=== PATIENT | female | born 1935 | race Caucasian/White ===

== ENCOUNTER 2021-12-08 10:22 | Inpatient (IN) | payer MEDICARE, OTHER ==
[~2021-12-08] VITALS: Ht 152.4 cm; Wt 68.0 kg
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
[2021-12-08] MEDS ORDERED: RIVA1.5C13 PO (10:42)
[2021-12-08] MEDS ORDERED: LORA0.5T48 PO (10:42)
[2021-12-08] MEDS ORDERED: BUME2TAB7 PO (10:42)
[2021-12-08] MEDS ORDERED: METH5TAB6 PO (10:42)
[2021-12-08] MEDS ORDERED: CHOL500050 PO (10:42)
[2021-12-08] MEDS ORDERED: ASCO500C18 PO (10:42)
[2021-12-08] MEDS ORDERED: ACET-2154 PO (10:42)
[2021-12-08] MEDS ORDERED: DAPA5TAB PO (10:42)
[2021-12-08] MEDS ORDERED: ESCI10TA PO (10:42)
[2021-12-08] MEDS ORDERED: ALIS150T PO (10:42)
[2021-12-08] MEDS ORDERED: BISA10SU61 RC (10:42)
[2021-12-08] MEDS ORDERED: RISP0.5T5 PO (10:42)
[2021-12-08] MEDS ORDERED: MAGN400O6 PO (10:42)
[2021-12-08] MEDS ORDERED: NA P133E RC (10:42)
--- NOTE | 2021-12-08 11:12 | NUR ---
Attempted to obtain a urine sample, pt unable to give sample in cup. Upon returning pt to bed, pt became paranoid and aguementative, would not return to the bed, but did get her to sit bedside in a chair.
[2021-12-08 11:16] LABS: MEAN CORPUSCULAR VOLUME 96.3 fL (75.5-95.3); PLATELET COUNT (AUTO) 271 K/uL (179-408)
[2021-12-08 11:18] LABS: CARBON DIOXIDE 32 mmol/L (21-32); CHLORIDE 107 mmol/L (98-107); CREATININE 1.1 mg/dL (0.6-1.3); GLUCOSE 136 mg/dL (74-106); POTASSIUM 3.9 mmol/L (3.5-5.1); UREA NITROGEN, BLOOD 25 mg/dL (7-18)
[2021-12-08 11:23] LABS: ALANINE AMINOTRANSFERASE 37 U/L (14-59); ALKALINE PHOSPHATASE 123 U/L (50-136); ASPARTATE AMINOTRANSFERASE 31 U/L (15-37); BILIRUBIN,DIRECT 0.1 mg/dL (0.0-0.2); BILIRUBIN,TOTAL 0.4 mg/dL (0.2-1.0)
[2021-12-08 11:26] LABS: ETHANOL < 3 MG/DL (0-0)
[2021-12-08 11:35] LABS: ACETAMINOPHEN < 2.0 ug/mL (10-30)
--- NOTE | 2021-12-08 11:35 | NUR ---
Pt tried wandering out of her room again, this time was not re directable. Pt became combative, goldie menon called. Pt was taken back to her bed, rails up, and calmed down.
--- NOTE | 2021-12-08 12:35 | NUR ---
Pt repeatedly got out of bed and tried leaving, was redirected to bed. Pt tried forcefully to leave, security called. Pt placed back in bed. ordered restraints. Soft restraints placed on pt's wrists.
--- NOTE | 2021-12-08 13:25 | NUR ---
Pt slipped out of soft restraints and tried eloping again, became combative when being taken back to bed. Psyche spa concierge, Power is now in ER to examine. Will hold off restraints for now.
--- NOTE | 2021-12-08 13:45 | NUR ---
gave report to ELVIA Rodriguez
[2021-12-08 14:00] VITALS: BP 113/56
--- NOTE | 2021-12-08 14:00 | NUR ---
PT ARRIVED TO UNIT ON GURNEY FROM ER ACCOMPANIED BY ER NURSE. PT IS CALM AND COOPERATIVE, BUT QUITE CONFUSED AND DISORIENTED. WANDERING AROUND UNIT AIMLESSLY. REQUIRES FREQUENT REDIRECTION. NO COMBATIVE BEHAVIOR NOTED AT THIS TIME. V/S STABLE. DENIES PAIN OR DISCOMFORT. ORIENTED TO UNIT AND RULES. PATIENTS RIGHTS HANDBOOK GIVEN TO PT.
[2021-12-08] MEDS ORDERED: LORAZEPAM 0.5 MG TABLET PO PRN (14:30)
[2021-12-08] MEDS ORDERED: MAGNESIUM HYDROXIDE 30 ML LIQUID UDC PO PRN ×2 (14:30→15:15)
[2021-12-08] MEDS ORDERED: TEMAZEPAM 7.5 MG CAPSULE PO PRN (14:30)
[2021-12-08] MEDS ORDERED: ACETAMINOPHEN 325 MG TABLET PO PRN (14:30)
[2021-12-08] MEDS ORDERED: MAG HYDROX/AL HYDROX/SIMETH 30 ML LIQUID UDC PO PRN (14:30)
[2021-12-08] MEDS ORDERED: ACETAMINOPHEN 325 MG TABLET-SA PATIENTS-PAIN ONLY PO PRN (15:15)
[2021-12-08] MEDS ORDERED: BISACODYL 10 MG SUPP.RECT RC PRN (15:15)
[2021-12-08] MEDS ORDERED: ALISKIREN HEMIFUMARATE 150 MG TABLET PO SCH (17:00)
[2021-12-08] MEDS ORDERED: RIVASTIGMINE TARTRATE 1.5 MG CAPSULE PO SCH (17:00)
--- NOTE | 2021-12-08 17:25 | NUR ---
PT NOTED AMBULATING UNIT HALLWAY, DIFFICULT TO REDIRECT AT TIMES. PT WILL GO TO NURSES STATION AND OPEN DOORS AND REFUSES TO LEAVE WITHOUT EXTENSIVE REDIRECTION. PT CAN GET COMBATIVE AT TIMES. WOODEN BARREL MECHANIC AND OTHER UNIT NURSE WAS STANDING NEXT TO HER IN HALLWAY AT THIS TIME REDIRECTING PT, WHEN ALL OF A SUDDEN PT FALLS BACK TO FLOOR HITTING OCCIPITAL PORTION OF HEAD. WITNESSED BY RN, VOCATIONAL COUNSELOR, AND INSPECTOR AND CLERK. NURSES ATTEMPT TO GRAB PT TO PREVENT PT FROM FALLING SINCE NURSES WERE RIGHT NEXT TO PT, BUT PT SLIPS OUT OF HANDS AND FALLS BACK. PT APPEARS TO LOSE CONSCIOUSNESS AND BP TAKEN AT 66/40. RAPID RESPONSE CALLED WITH ORDER TO TAKE TO ER. PT'S BRENDA CALLED AND NOTIFIED.
[2021-12-08 18:26] LABS: MEAN CORPUSCULAR HEMOGLOBIN 32.6 uug (24.7-32.8); MEAN CORPUSCULAR VOLUME 95.6 fL (75.5-95.3); PLATELET COUNT (AUTO) 249 K/uL (179-408)
--- NOTE | 2021-12-08 18:39 | NUR ---
PT TO BE DISCHARGED TO EMERGENCY ROOM FOR FURTHER TREATMENT AND EVALUATION. PT IS TO CONTINUE ON [address] SONG.
[2021-12-08 18:42] LABS: ALANINE AMINOTRANSFERASE 37 U/L (14-59); ALKALINE PHOSPHATASE 120 U/L (50-136); ASPARTATE AMINOTRANSFERASE 32 U/L (15-37); BILIRUBIN,TOTAL 0.5 mg/dL (0.2-1.0); CARBON DIOXIDE 29 mmol/L (21-32); CHLORIDE 104 mmol/L (98-107); CREATININE 1.6 mg/dL (0.6-1.3); GLUCOSE 181 mg/dL (74-106); MAGNESIUM 2.3 mg/dL (1.8-2.4); POTASSIUM 3.7 mmol/L (3.5-5.1); TOTAL PROTEIN, SERUM 6.6 g/dL (6.4-8.2); UREA NITROGEN, BLOOD 27 mg/dL (7-18)
[2021-12-09] MEDS ORDERED: Medication Not On Formulary EA (Ascorbic Acid (Vitamin C) 500 MG) PO SCH (06:00)
[2021-12-09] MEDS ORDERED: [UNRECOGNIZED DRUG - OTHER] PO SCH (09:00)
[2021-12-09] MEDS ORDERED: ASCORBIC ACID 500 MG TABLET PO SCH (09:00)
[2021-12-09] MEDS ORDERED: CHOLECALCIFEROL 1,000 UNIT TABLET PO SCH (09:00)
[2021-12-09] MEDS ORDERED: BUMETANIDE 1 MG TABLET PO SCH (09:00)
[2021-12-09] MEDS ORDERED: ALISKIREN 150 MG PO SCH (09:00)
[2021-12-09] MEDS ORDERED: [UNRECOGNIZED DRUG - OTHER] PO SCH (09:00)
[2021-12-09] MEDS ORDERED: Medication Not On Formulary EA (Cholecalciferol (Vitamin D3) (Vitamin D3) 5,000 UNITS) PO SCH (09:00)
[2021-12-09] MEDS ORDERED: Medication Not On Formulary EA (Dapagliflozin Propanediol (Farxiga) 5 MG) PO SCH (09:00)
[2021-12-09] MEDS ORDERED: Medication Not On Formulary EA (Bumetanide (Bumex) 2 MG) PO SCH (09:00)
[2021-12-09] MEDS ORDERED: DAPAGLIFLOZIN 5 MG PO SCH (09:00)
[2021-12-09] MEDS ORDERED: METHIMAZOLE 5 MG TABLET PO SCH (09:00)
== END 2021-12-08 17:20 | disposition short-term general hospital (02) | DRG 885 ==
LOC: ER 10:22 → GPS 13:48
PROVIDERS: ADMIT Psychiatry & Neurology Psychiatry; ATTEND Registered Nurse
DX: F29 Unspecified psychosis not due to a substance or known physiological condition (principal); E87.0 Hyperosmolality and hypernatremia; E86.0 Dehydration; F02.80 Dementia in other diseases classified elsewhere, unspecified severity, without behavioral disturbance, psychotic disturbance, mood disturbance, and anxiety; F31.9 Bipolar disorder, unspecified; F41.9 Anxiety disorder, unspecified; G30.9 Alzheimer's disease, unspecified; I25.10 Atherosclerotic heart disease of native coronary artery without angina pectoris; K21.9 Gastro-esophageal reflux disease without esophagitis; K58.9 Irritable bowel syndrome, unspecified; Z20.822 Contact with and (suspected) exposure to COVID-19; M19.90 Unspecified osteoarthritis, unspecified site; W19.XXXA Unspecified fall, initial encounter; Y93.9 Activity, unspecified; Y92.230 Patient room in hospital as the place of occurrence of the external cause
CPT/HCPCS: 36415; 80164; 83605; 83735; 84100; 84484; 85025; 87040; 93005; A4217; A4663; G0480; J3490

== ENCOUNTER 2021-12-08 17:30 | Inpatient (IN) | payer MEDICARE, OTHER ==
[~2021-12-08] VITALS: Ht 152.4 cm; Wt 68.0 kg
[~2021-12-08 17:30] MED LIST: ACET-2154 PO; ALIS150T PO; ASCO500C18 PO; BISA10SU61 RC; BUME2TAB7 PO; CHOL500050 PO; DAPA5TAB PO; ESCI10TA PO; LORA0.5T48 PO; MAGN400O6 PO; METH5TAB6 PO; NA P133E RC; RISP0.5T5 PO; RIVA1.5C13 PO
--- NOTE | 2021-12-08 17:30 | NUR ---
PT NON-COMPLIANT WITH EKG AND BLOOD DRAW, NOTIFIED.
--- NOTE | 2021-12-08 17:40 | NUR ---
Pt fell in MHU and hit head, lac on occiput, minimal bleeding. MD placed lloyd, pt combative, held for staff safety.
[2021-12-08] MEDS ORDERED: NEOMY/BACITRA/POLYMYXIN B OINT UD PACKET TP ONE ×2 (17:45→17:49)
[2021-12-08] MEDS ORDERED: ZIPRASIDONE MESYLATE 20 MG VIAL IM ONE ×2 (17:54→18:00)
[2021-12-08] MEDS ORDERED: LIDOCAINE HCL 1% 20 ML VIAL IJ ONE (18:15)
--- NOTE | 2021-12-08 20:17 | NUR ---
CRITICAL LAB VALUE LACTIC ACID 2.5 REPORTED TO AND CONTRACTOR FIELD HAULING JENNIFER FONG
[2021-12-08] MEDS ORDERED: HALOPERIDOL LACTATE 5 MG/1 ML VIAL IM ONE (20:30)
[2021-12-08] MEDS ORDERED: HALOPERIDOL LACTATE 5 MG/1 ML VIAL ONE (20:32)
--- NOTE | 2021-12-08 21:07 | NUR ---
PT TAKEN DOWN FOR CT AND XRAY.
--- NOTE | 2021-12-08 22:53 | NUR ---
JENNIFER FONG PAGED.
[2021-12-08] MEDS ORDERED: KETAMINE HCL 500 MG/10 ML INJ IV ONE (23:00)
[2021-12-08] MEDS ORDERED: KETAMINE HCL 500 MG/10 ML INJ ONE (23:04)
[2021-12-08] MEDS ORDERED: ONDANSETRON 4 MG/2 ML VIAL IV PRN (23:45)
[2021-12-08] MEDS ORDERED: MAGNESIUM HYDROXIDE 30 ML LIQUID UDC PO PRN (23:45)
[2021-12-08] MEDS ORDERED: CEFTRIAXONE 1 G in IV DEXTROSE 5% 50 ML IV SCH (23:45)
[2021-12-08] MEDS ORDERED: MORPHINE SULFATE 2 MG/1 ML DISP.SYRIN IV PRN (23:45)
[2021-12-08] MEDS ORDERED: HYDROCODONE/APAP 5-325MG TABLET PO PRN (23:45)
[2021-12-08] MEDS ORDERED: ACETAMINOPHEN 325 MG TABLET PO PRN (23:45)
[2021-12-08] MEDS ORDERED: IV NS 1000 ML 1,000 ML IV ONE (23:45)
[2021-12-08] MEDS ORDERED: REMEDY ESSENTIAL ZINC PASTE 113 GM TP PRN (23:45)
[2021-12-09] MEDS ORDERED: BISACODYL 10 MG SUPP.RECT RC PRN
[2021-12-09] MEDS ORDERED: DEXTROSE 50% 50 ML DISP.SYRIN IV PRN
[2021-12-09] MEDS ORDERED: INSULIN REGULAR, HUMAN 300 UNITS/3 ML VIAL SQ PRN
[2021-12-09] MEDS ORDERED: MAGNESIUM HYDROXIDE 30 ML LIQUID UDC PO PRN
[2021-12-09] MEDS ORDERED: ACETAMINOPHEN 325 MG TABLET-SA PATIENTS-PAIN ONLY PO PRN
--- NOTE | 2021-12-09 00:04 | NUR ---
PT IS RESTING IN BED, 1:1 SITTER AT BEDSIDE.
--- NOTE | 2021-12-09 02:00 | NUR ---
GAVE REPORT TO WILL.
--- NOTE | 2021-12-09 02:30 | NUR ---
Admitted patient on tele floor under the care of Myrna Barnard E COMMERCE MERCHANT, patient alert but with confusion, patient unredirectable, wants to wander around the hospital, Patient has multiple attempts of pulling out iv lines, unable to follow directions, risk for injury, Patient has 1;1 sitter due hold and risk for awol. Patient has back of the head laceration with lloyd, unable to count the lloyd, patient refused to touch, and to stay still. cont to monitor.
[2021-12-09] MEDS: IV NS 1000 ML 1,000 ML IV PRN (02:55)
[2021-12-09 04:00] VITALS: BP 153/66
--- NOTE | 2021-12-09 05:10 | NUR ---
Patient awake, restless while in bed, had multiple attempts of pulling out iv lines, patient confused, unredirectable, offered food and water. Patient wrist restraints in place, check for placement, and release as indicated, check for circulations, Patient does not complain of pain, no sob no chest noted, tele monitor, sinus rhythm, cont to monitor.
[2021-12-09 06:13] LABS: HEMATOCRIT 37.3 % (31.2-41.9); MEAN CORPUSCULAR VOLUME 95.5 fL (75.5-95.3); PLATELET COUNT (AUTO) 256 K/uL (179-408)
[2021-12-09] MEDS: BLOOD SUGAR DIAGNOSTIC 1 EACH STRIP VI SCH ×4 (06:26→21:08)
[2021-12-09 06:48] LABS: CREATININE 1.1 mg/dL (0.6-1.3); MAGNESIUM 2.3 mg/dL (1.8-2.4); PHOSPHOROUS 3.1 mg/dL (2.5-4.9); POTASSIUM 3.7 mmol/L (3.5-5.1)
[2021-12-09 07:15] LABS: THYROID STIMULATING HORMONE 0.585 mIU/mL (0.358-3.740)
[2021-12-09 07:29] VITALS: BP 136/56
[2021-12-09] MEDS: PANTOPRAZOLE SODIUM 40 MG VIAL IV SCH (08:27)
[2021-12-09] MEDS: ASCORBIC ACID 500 MG TABLET PO SCH (08:27)
[2021-12-09] MEDS: RIVASTIGMINE TARTRATE 1.5 MG CAPSULE PO SCH ×2 (08:27→16:34)
--- NOTE | 2021-12-09 08:30 | NUR ---
Patient report received from PM nurse. Arrived to patient's room awake with no signs of distress or discomfort. Patient attempting to pull out IV site. Mittens ordered and placed to prevent pulling of IV site. 1:1 sitter at bedside. IV site intact and patent. Bed left in lowest position. Will monitor patient throughout shift.
[2021-12-09] MEDS ORDERED: Medication Not On Formulary EA (Dapagliflozin Propanediol (Farxiga) 5 MG) PO SCH (09:00)
[2021-12-09] MEDS ORDERED: Medication Not On Formulary EA (Cholecalciferol (Vitamin D3) (Vitamin D3) 5,000 UNITS) PO SCH (09:00)
[2021-12-09] MEDS: METHIMAZOLE 5 MG TABLET PO SCH (09:33)
[2021-12-09] MEDS: CHOLECALCIFEROL 1,000 UNIT TABLET PO SCH (09:34)
[2021-12-09] MEDS ORDERED: OLANZAPINE 10 MG VIAL IM ONE (10:30)
[2021-12-09] MEDS: risperiDONE 0.5 MG TABLET PO SCH ×2 (10:39→16:34)
[2021-12-09 12:47] LABS: *BILIRUBIN,URIN NEGATIVE (NEGATIVE); *BLOOD, URINE NEGATIVE (NEGATIVE); *CLARITY,URINE CLEAR (CLEAR); *COLOR,URINE YELLOW (YELLOW); *KETONES,URINE NEGATIVE (NEGATIVE); *UROBILINOGEN,URINE 0.2 E.U./dl (NORMAL); LEUKOCYTE ESTERASE ,URINE NEGATIVE (NEGATIVE); NITRITE, URINE NEGATIVE (NEGATIVE); PH,URINE 7.5 (5.0-8.0); UGLUCOSE 3+ (NEGATIVE)
[2021-12-09 12:57] LABS: MUCUS,URINE FEW /LPF (0-FEW); RBC,URINE NONE SEEN /HPF (0-3); WBC,URINE 0-3 /HPF (0-3)
[2021-12-09 12:58] LABS: SQUAMOUS EPITHELIAL CELL,UR FEW /HPF (NONE SEEN)
[2021-12-09 12:59] LABS: BACTERIA,URINE NONE SEEN /HPF (NONE SEEN)
[2021-12-09] MEDS: INSULIN REGULAR, HUMAN 300 UNIT/3 ML VIAL SQ PRN (13:12)
[2021-12-09 16:00] VITALS: BP 132/59
[2021-12-09 20:12] VITALS: BP 113/44
--- NOTE | 2021-12-09 21:24 | NUR ---
Patient inserted new iv site to right wrist 22 gauge, kept left ac 20 gauge heplock, procedure tolerate well cont to monitor. Patient still has aggressive behavior, tried to kick, squeeze staff hand when given care. Patient un redirectable, patient calm but she has aggressive behavior, hostile to staff, cont to monitor.
[2021-12-10] MEDS: IV NS 1000 ML 1,000 ML IV PRN (02:25)
[2021-12-10] MEDS ORDERED: CEFTRIAXONE 1 G in IV DEXTROSE 5% 50 ML IV SCH (03:00)
--- NOTE | 2021-12-10 03:00 | NUR ---
Patient still uncooperative with care, multiple attempts of pulling iv lines, limbs oob, forgets to ask for assistance, dayton soft restraints still necessary at this time. cont 1;1 sitter due hold, patient has multiple episode of combative, tries to strike staff, or kick staff during care, explained to patient before procedure but does not follow due to mental health condition. cont to monitor.
[2021-12-10 04:00] VITALS: BP 130/61
[2021-12-10 06:39] LABS: HEMATOCRIT 38.1 % (31.2-41.9); MEAN CORPUSCULAR HEMOGLOBIN 32.9 uug (24.7-32.8); MEAN CORPUSCULAR VOLUME 95.6 fL (75.5-95.3); PLATELET COUNT (AUTO) 238 K/uL (179-408)
[2021-12-10 06:56] LABS: CREATININE 0.8 mg/dL (0.6-1.3); MAGNESIUM 2.1 mg/dL (1.8-2.4); PHOSPHOROUS 2.9 mg/dL (2.5-4.9); POTASSIUM 3.8 mmol/L (3.5-5.1)
[2021-12-10] MEDS: BLOOD SUGAR DIAGNOSTIC 1 EACH STRIP VI SCH ×2 (07:00→12:39)
[2021-12-10 07:19] VITALS: BP 132/65
[2021-12-10 08:00] VITALS: BP 132/65
[2021-12-10] MEDS: METHIMAZOLE 5 MG TABLET PO SCH (08:33)
[2021-12-10] MEDS: PANTOPRAZOLE SODIUM 40 MG VIAL IV SCH (08:33)
[2021-12-10] MEDS: risperiDONE 0.5 MG TABLET PO SCH (08:34)
[2021-12-10] MEDS: RIVASTIGMINE TARTRATE 1.5 MG CAPSULE PO SCH (08:34)
[2021-12-10] MEDS: ASCORBIC ACID 500 MG TABLET PO SCH (08:34)
[2021-12-10] MEDS: CHOLECALCIFEROL 1,000 UNIT TABLET PO SCH (08:34)
[2021-12-10] MEDS ORDERED: CHOL100062 PO (08:50)
[2021-12-10] MEDS ORDERED: HYDR-3972 PO (08:50)
[2021-12-10] MEDS ORDERED: INSU100V28 SQ ×2 (08:50)
[2021-12-10] MEDS ORDERED: Blood Sugar Diagnostic VI (08:50)
[2021-12-10] MEDS ORDERED: RISP0.5T5 PO (08:50)
[2021-12-10] MEDS ORDERED: MAGN400O6 PO (08:50)
[2021-12-10] MEDS ORDERED: ACET325T53 PO (08:50)
[2021-12-10 11:35] VITALS: BP 140/76
[2021-12-10] MEDS: INSULIN REGULAR, HUMAN 300 UNIT/3 ML VIAL SQ PRN (12:42)
--- NOTE | 2021-12-10 14:00 | NUR ---
pt d/c to MHU since pt is medically cleared. Original HOLD documentation sent to MHU. Pictures taken of occipital head wound. Clarified with Myrna re: marlene pt to be transfered to MHU without any ABX. pt is in no acute distress upon transfer. Report given to charge nurse of MHU.
== END 2021-12-10 13:35 | DRG 312 ==
LOC: ER 17:30 → TELE3 12-09 02:04 → TELE-TD3 12-09 02:15 → TELE3 12-09 02:39 → MEDSURG3 12-09 11:05
PROVIDERS: ADMIT Registered Nurse; ATTEND Registered Nurse
PROC: 0HQ0XZZ Repair Scalp Skin, External Approach (ICD-10-PCS; principal; 2021-12-08)
DX: I95.2 Hypotension due to drugs (principal); G92.8 Other toxic encephalopathy; N17.9 Acute kidney failure, unspecified; E87.2 Acidosis; F23 Brief psychotic disorder; F02.81 Dementia in other diseases classified elsewhere, unspecified severity, with behavioral disturbance; T50.1X5A Adverse effect of loop [high-ceiling] diuretics, initial encounter; R55 Syncope and collapse; S01.01XA Laceration without foreign body of scalp, initial encounter; W18.39XA Other fall on same level, initial encounter; Y92.232 Corridor of hospital as the place of occurrence of the external cause; Y93.01 Activity, walking, marching and hiking; E86.0 Dehydration; Y92.9 Unspecified place or not applicable; F31.9 Bipolar disorder, unspecified; F41.9 Anxiety disorder, unspecified; G30.9 Alzheimer's disease, unspecified; E66.9 Obesity, unspecified; Z68.29 Body mass index [BMI] 29.0-29.9, adult; Z79.899 Other long term (current) drug therapy; E11.9 Type 2 diabetes mellitus without complications; Z88.6 Allergy status to analgesic agent; Z88.1 Allergy status to other antibiotic agents; K58.9 Irritable bowel syndrome, unspecified; K21.9 Gastro-esophageal reflux disease without esophagitis; I25.10 Atherosclerotic heart disease of native coronary artery without angina pectoris; M19.90 Unspecified osteoarthritis, unspecified site
CPT/HCPCS: 36415; 70450; 71045; 72125; 83605; 83735; 84100; 84443; 85025; 87086; 93005; 93307; A4217; A4663; C1758; C9113; G0378; J0696; J1630; J2358; J3486; J3490; J7030; J7060

== ENCOUNTER 2021-12-10 13:50 | Inpatient (IN) | payer MEDICARE, OTHER ==
[~2021-12-10] VITALS: Ht 167.6 cm; Wt 68.5 kg
[~2021-12-10 13:50] MED LIST changes: +ACET325T53 PO; +Blood Sugar Diagnostic VI; +CEFTRIAXONE 1 G VIAL ONE; +CHOL100062 PO; -ESCI10TA PO; +HYDR-3972 PO; +INSU100V28 SQ; -LORA0.5T48 PO
--- NOTE | 2021-12-10 14:00 | NUR ---
GPS: Nursing Notes: Admitting Notes: Patient is admitted to MHU on 5150 GD due to patient's judgment is impaired, poor insight and impulse control, patient is not able to provide for her food, mcc, or clothing due to a mental disorder. On face to face assessment, patient is awake and responding to her name, confused, disoriented, impaired judgment, poor insight, talking incoherently, internally preoccupied, mumbling to unseen others, gets easily irritable when redirected, unable to formulate a viable plan for self care, disorganized, originally came from [facility] , but she was readmitted from the Med. Surg. Department - [facility], laceration on the back of her head with 2 lloyd, no s/s of infection noted, picture taken per protocol, oriented to MHU, admitting package given to the patient - Patient's Rights handbook is included in the package, continue to monitor for safety, Dr. Parekh and Myrna Barnard, COMMUNITY ASSOCIATE informed of admission, continue with treatment plan.
[2021-12-10] MEDS ORDERED: MAG HYDROX/AL HYDROX/SIMETH 30 ML LIQUID UDC PO PRN (14:15)
[2021-12-10] MEDS ORDERED: ACETAMINOPHEN 325 MG TABLET PO PRN (14:15)
[2021-12-10] MEDS ORDERED: TEMAZEPAM 7.5 MG CAPSULE PO PRN (14:15)
[2021-12-10] MEDS ORDERED: MAGNESIUM HYDROXIDE 30 ML LIQUID UDC PO PRN ×3 (14:15→14:30)
[2021-12-10] MEDS ORDERED: BISACODYL 10 MG SUPP.RECT RC PRN (14:30)
[2021-12-10] MEDS ORDERED: ACETAMINOPHEN 325 MG TABLET-SA PATIENTS-PAIN ONLY PO PRN (14:30)
[2021-12-10] MEDS ORDERED: INSULIN REGULAR, HUMAN 300 UNIT/3 ML VIAL SQ PRN ×3 (14:30)
[2021-12-10] MEDS ORDERED: INSULIN REGULAR, HUMAN 300 UNITS/3 ML VIAL SQ PRN (14:30)
[2021-12-10 16:13] VITALS: BP 106/62
[2021-12-10] MEDS: LORAZEPAM 0.5 MG TABLET PO PRN (16:39)
[2021-12-10] MEDS: RIVASTIGMINE TARTRATE 1.5 MG CAPSULE PO SCH (16:39)
[2021-12-10 19:33] VITALS: BP 139/61
[2021-12-10] MEDS: HYDROCODONE/APAP 5-325MG TABLET PO PRN (20:41)
[2021-12-11] MEDS ORDERED: Medication Not On Formulary EA (Ascorbic Acid (Vitamin C) 500 MG) PO SCH (06:00)
[2021-12-11 08:00] VITALS: BP 118/64
[2021-12-11 08:00] LABS: BILIRUBIN,TOTAL 0.7 mg/dL (0.2-1.0); CREATININE 0.8 mg/dL (0.6-1.3); POTASSIUM 3.8 mmol/L (3.5-5.1); TOTAL PROTEIN, SERUM 5.7 g/dL (6.4-8.2)
[2021-12-11] MEDS ORDERED: Medication Not On Formulary EA (Cholecalciferol (Vitamin D3) (Vitamin D3) 5,000 UNITS) PO SCH (09:00)
[2021-12-11] MEDS: METHIMAZOLE 5 MG TABLET PO SCH (09:02)
[2021-12-11] MEDS: RIVASTIGMINE TARTRATE 1.5 MG CAPSULE PO SCH (09:03)
[2021-12-11] MEDS: ASCORBIC ACID 500 MG TABLET PO SCH (09:03)
[2021-12-11] MEDS: CHOLECALCIFEROL 1,000 UNIT TABLET PO SCH (09:03)
[2021-12-11] MEDS: risperiDONE 0.5 MG TABLET PO SCH ×2 (09:34→16:34)
--- NOTE | 2021-12-11 11:38 | NUR ---
WOUND CARE CONSULT: PT PRESENTS WITH MARIANGEL TO POSTERIOR SCALP. NO DRAINAGE OR TENDNERNESS NOTED. WILL SEE PRN.
--- NOTE | 2021-12-11 15:50 | NUR ---
Received patient sleeping in her room. A/O X 2 to person, place. Pt. is cooperative with care and compliant with medications, preoccupied, calm, quiet. Pt. appearance is age appropriate. Pt. lloyd are free from infection, no drainage, redness, or tenderness. Denies pain or any discomfort. Denies SI/HI AH/VH. Requires more than minimal assistance with ADL. Continent of bladder and bowel. Emotional support given. Fall and safety precautions implemented.
--- NOTE | 2021-12-11 16:29 | NUR ---
JULIA Initial Discharge Note: Pt is admitted to [facility] from [facility] [address] [facility] [address] ([phone]). Actuarial Associate of admissions at the facility, Patricia stated pt is welcome back upon discharge once cleared by MD. JULIA briefly spoke to pt's life partner and SEA Phan ([phone]) who stated she will return SW's call for further questions regarding the assessment. JULIA will continue to work with pt, family and MD to ensure a safe and proper discharge plan.information.
--- NOTE | 2021-12-11 16:29 | NUR ---
SW Admit Source: Pt is admitted to [facility] from [facility] [address] [facility] [address] ([phone]). Marble Helper of admissions at the facility, Patricia stated pt is welcome back upon discharge once cleared by MD. JULIA briefly spoke to pt's life partner and SEA Phan ([phone]) who stated she will return SW's call for further questions regarding the assessment. JULIA will continue to work with pt, family and MD to ensure a safe and proper discharge plan.information.
--- NOTE | 2021-12-11 16:29 | NUR ---
Firearms Report: Dog Breeder completed and submitted a [employer] firearms report for 5150 grave disability certifications. A copy of report has been placed in patient chart
[2021-12-11 16:46] VITALS: BP 102/55
--- NOTE | 2021-12-11 19:18 | NUR ---
Patient only urinated in the morning and spent the whole afternoon without going in the bathroom. Bladder scan was borrowed from third floor to check if patient was retaining urine. Bladder scan showed 342 ml, follow up was endorse to laborer powerhouse on report.
[2021-12-11 19:54] VITALS: BP 134/55
--- NOTE | 2021-12-12 06:50 | NUR ---
Patient asleep but arousable, patient talks, mumble words. Patient takes medication, but episode of uncooperative with care, like to walks and wanders around without help, refused to be held while ambulating, gets agitated, and tries to hit staff. Patient alert but with confusion, assisted to toilet before going to sleep and urinate moderate amount of yellow color urine. abdomen soft. cont to monitor.
[2021-12-12 07:30] VITALS: BP 135/56
[2021-12-12] MEDS: CHOLECALCIFEROL 1,000 UNIT TABLET PO SCH (08:30)
[2021-12-12] MEDS: risperiDONE 0.5 MG TABLET PO SCH ×2 (08:30→20:06)
[2021-12-12] MEDS: LORAZEPAM 0.5 MG TABLET PO PRN ×2 (08:30→20:06)
[2021-12-12] MEDS: ASCORBIC ACID 500 MG TABLET PO SCH (08:30)
[2021-12-12] MEDS: METHIMAZOLE 5 MG TABLET PO SCH (08:33)
[2021-12-12] MEDS ORDERED: ZOLPIDEM 5 MG TABLET PO PRN (10:15)
[2021-12-12 15:06] VITALS: BP 111/48
--- NOTE | 2021-12-12 15:58 | NUR ---
GPS: Nursing Notes: Thought Disorder: Patient is awake and responding to her name, disoriented, confused, impaired judgement, resistant with nursing care, sundown behavior, forgetful, unsteady gait at this time, episodes of talking incoherently, redirected and reoriented during shift, unable to formulate a viable plan for self care, needs assistance with ADL's, continue to monitor for safety, continue with treatment plan.
[2021-12-12 19:49] VITALS: BP 116/66
[2021-12-12] MEDS: MELATONIN 3 MG TABLET PO SCH (20:06)
[2021-12-13] MEDS: ASCORBIC ACID 500 MG TABLET PO SCH (09:22)
[2021-12-13] MEDS: CHOLECALCIFEROL 1,000 UNIT TABLET PO SCH (09:22)
[2021-12-13] MEDS: METHIMAZOLE 5 MG TABLET PO SCH (09:23)
[2021-12-13] MEDS: risperiDONE 0.5 MG TABLET PO SCH ×2 (09:23→20:26)
[2021-12-13 16:50] VITALS: BP 164/71
--- NOTE | 2021-12-13 16:58 | NUR ---
Received patient sleeping in her room. A/O X 1 to disoriented, confused, combative with care, poor safety awareness. Compliant with medications. Requires more than minimal assistance with ADL. Continent. Ambulates with assistance of two people. Reality orientation provided. Fall and safety precautions implemented.
[2021-12-13 19:45] VITALS: BP 152/72
[2021-12-13] MEDS: MELATONIN 3 MG TABLET PO SCH (20:26)
[2021-12-13] MEDS: LORAZEPAM 0.5 MG TABLET PO PRN (20:26)
--- NOTE | 2021-12-14 06:02 | NUR ---
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 Patient compliant with medications, snack provided and consumes 100%. @2100 patient starts to be irritable and restless, refused to go to bathroom, refused to go to her room, refused to participate in her care, Ativan given as ordered. @2230 patient transfer to bed safely. Patient slept throughout the shift. Visual assessment done for safety.
[2021-12-14 07:31] VITALS: BP 152/63
[2021-12-14] MEDS: METHIMAZOLE 5 MG TABLET PO SCH (08:51)
[2021-12-14] MEDS: risperiDONE 0.5 MG TABLET PO SCH ×2 (08:52→20:14)
[2021-12-14] MEDS: CHOLECALCIFEROL 1,000 UNIT TABLET PO SCH (08:52)
[2021-12-14] MEDS: ASCORBIC ACID 500 MG TABLET PO SCH (08:52)
--- NOTE | 2021-12-14 11:22 | NUR ---
GPS: 14 DAY HOLD HEARING DONE AND PROBABLE CAUSE REMAINS ON GRAVE DISABILITY.
[2021-12-14 16:44] VITALS: BP 113/48
[2021-12-14 20:00] VITALS: BP 138/57
[2021-12-14] MEDS: MELATONIN 3 MG TABLET PO SCH (20:14)
--- NOTE | 2021-12-14 22:30 | NUR ---
PATIENT RECEIVED UP IN MEGAN-CHAIR FRONT OF NURSING STATION. PATIENT A/O X2 PATIENT DISORIENTED, CONFUSED, AND COMBATIVE DURING CARE. PATIENT REQUIRES CONSTANT REDIRECTION. PATIENT COMPLAINT WITH MEDICATION, REDIRECTION REQUIRED.PATIENT HAS POOR SAFETY AWARENESS. PATIENT REQUIRES TWO PEOPLE ASSISTANCE FOR ADLS AND AMBULATING.
--- NOTE | 2021-12-15 00:11 | NUR ---
Offered patient sleeping aid patient remains awake, patient agreed to take then refused to take medication. Returned back.
[2021-12-15 07:30] VITALS: BP 126/59
[2021-12-15] MEDS: risperiDONE 0.5 MG TABLET PO SCH ×2 (08:33→20:25)
[2021-12-15] MEDS: ASCORBIC ACID 500 MG TABLET PO SCH (08:34)
[2021-12-15] MEDS: METHIMAZOLE 5 MG TABLET PO SCH (08:36)
[2021-12-15] MEDS: CHOLECALCIFEROL 1,000 UNIT TABLET PO SCH (09:00)
[2021-12-15] MEDS: GLUCERNA SHAKE VANILLA 237 ML CAN PO SCH (09:15)
[2021-12-15 15:38] VITALS: BP 169/69
[2021-12-15] MEDS: HYDROCODONE/APAP 5-325MG TABLET PO PRN (15:59)
--- NOTE | 2021-12-15 16:18 | NUR ---
SW Discharge Update: Patricia from admissions at [facility] [address] [facility] [address] ([phone]) stated that pt is welcome back on 12/18/21.
[2021-12-15] MEDS: LISINOPRIL 5 MG TABLET PO SCH (16:35)
[2021-12-15 20:02] VITALS: BP 164/74
[2021-12-15] MEDS: TRAZODONE 50 MG TABLET PO SCH (20:25)
[2021-12-15] MEDS: MELATONIN 3 MG TABLET PO SCH (20:25)
[2021-12-16 07:30] VITALS: BP 127/72
[2021-12-16] MEDS: GLUCERNA SHAKE VANILLA 237 ML CAN PO SCH (09:00)
[2021-12-16] MEDS: CHOLECALCIFEROL 1,000 UNIT TABLET PO SCH (10:17)
[2021-12-16] MEDS: LISINOPRIL 5 MG TABLET PO SCH (10:17)
[2021-12-16] MEDS: METHIMAZOLE 5 MG TABLET PO SCH (10:17)
[2021-12-16] MEDS: ASCORBIC ACID 500 MG TABLET PO SCH (10:17)
[2021-12-16] MEDS: risperiDONE 0.5 MG TABLET PO SCH ×2 (10:18→20:20)
--- NOTE | 2021-12-16 14:44 | NUR ---
Gps/Game Attendant- Alexis Robledo SWIFT TENDER in to see patient, informed patient on sliding scale insulin but no accu-check order, will check AIC first in the morning as ordered.
[2021-12-16 16:00] VITALS: BP 112/43
[2021-12-16 20:00] VITALS: BP 131/52
[2021-12-16] MEDS: TRAZODONE 50 MG TABLET PO SCH (20:20)
[2021-12-16] MEDS: MELATONIN 3 MG TABLET PO SCH (20:20)
[2021-12-16] MEDS: HYDROCODONE/APAP 5-325MG TABLET PO PRN (21:50)
--- NOTE | 2021-12-17 06:00 | NUR ---
Patient remains confused. Total assist in the shower. Sleep hours were 6.00. Safety Stratiges are in place.
[2021-12-17 08:31] VITALS: BP 134/51
[2021-12-17] MEDS: METHIMAZOLE 5 MG TABLET PO SCH (08:39)
[2021-12-17] MEDS: risperiDONE 0.5 MG TABLET PO SCH ×2 (08:39→23:02)
[2021-12-17] MEDS: ASCORBIC ACID 500 MG TABLET PO SCH (08:40)
[2021-12-17] MEDS: CHOLECALCIFEROL 1,000 UNIT TABLET PO SCH (08:41)
[2021-12-17] MEDS: GLUCERNA SHAKE VANILLA 237 ML CAN PO SCH (08:51)
[2021-12-17] MEDS: LISINOPRIL 5 MG TABLET PO SCH (08:52)
--- NOTE | 2021-12-17 11:00 | NUR ---
Gps/Director Of Placement- Kept patient up in her moreno-chair by the Nurses station , fed self ind.after set up. Cooperative at this time, but occ. noted be be uncooperative and gets feisty during her care, toileted at a regular intervals . Informed Emilie of patient's discharge planning for tomorrow, left note for Awa (JULIA) place infront of pt's. chart , Emilie claimed she went to check [facility] , and does not like it .
[2021-12-17 15:55] VITALS: BP 115/47
--- NOTE | 2021-12-17 19:32 | NUR ---
Gps/Single Wire Saw Operator- Covid antigen swab done
[2021-12-17 20:05] VITALS: BP 120/52
[2021-12-17] MEDS: TRAZODONE 50 MG TABLET PO SCH (21:00)
[2021-12-17] MEDS: MELATONIN 3 MG TABLET PO SCH (23:00)
[2021-12-17] MEDS: HYDROCODONE/APAP 5-325MG TABLET PO PRN (23:02)
[2021-12-17] MEDS: LORAZEPAM 0.5 MG TABLET PO PRN (23:02)
[2021-12-18 07:30] VITALS: BP 132/51
[2021-12-18] MEDS: risperiDONE 0.5 MG TABLET PO SCH (08:24)
[2021-12-18] MEDS: METHIMAZOLE 5 MG TABLET PO SCH (08:24)
[2021-12-18 08:25] VITALS: BP 132/51
[2021-12-18] MEDS: GLUCERNA SHAKE VANILLA 237 ML CAN PO SCH (08:25)
[2021-12-18] MEDS: LISINOPRIL 5 MG TABLET PO SCH (08:25)
[2021-12-18] MEDS: CHOLECALCIFEROL 1,000 UNIT TABLET PO SCH (08:25)
[2021-12-18] MEDS: ASCORBIC ACID 500 MG TABLET PO SCH (09:09)
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
--- NOTE | 2021-12-18 10:59 | NUR ---
JULIA Discharge Note: Pt will be discharged to [facility] [address] [place] [address] ([phone]) via Ambulance transportation at 11AM. JULIA spoke with admin coordinator, Fabiola at the facility who states they are ready to accept the patient today. Pts partner and DPOA, Emilie ([phone]) is aware and agreeable with the discharge plan. Pt is alert and oriented x1(name), is unable to plan for self-care at this time; however, is willing to accept care at SNF. Pt denies any suicidal or homicidal ideation. Pt will follow-up at the facility with her Psychiatrist, Dr. Parekh and Reel Worker, Dr. Hodgson. Pt presents with calm mood and congruent affect. PHARMACY: [facility] [phone] [address] [place] [address].
--- NOTE | 2021-12-18 14:45 | NUR ---
Pt discharged to [facility] via ambulance at 2pm.patient in stable condition vital sign stable, Pts partner and DPANISH Emilie is aware and agreeable with the discharge plan. Pt is alert and oriented x1 to her name ,assisted with all ADLS, all personal belonging returned to patient.
== END 2021-12-18 14:45 | DRG 885 ==
LOC: GPS 13:50
PROVIDERS: ADMIT Psychiatry & Neurology Psychiatry
DX: F29 Unspecified psychosis not due to a substance or known physiological condition (principal); G92.8 Other toxic encephalopathy; F02.81 Dementia in other diseases classified elsewhere, unspecified severity, with behavioral disturbance; D68.59 Other primary thrombophilia; E87.2 Acidosis; G30.9 Alzheimer's disease, unspecified; E66.9 Obesity, unspecified; E86.0 Dehydration; F31.9 Bipolar disorder, unspecified; F41.9 Anxiety disorder, unspecified; I25.10 Atherosclerotic heart disease of native coronary artery without angina pectoris; I50.9 Heart failure, unspecified; K21.9 Gastro-esophageal reflux disease without esophagitis; K58.9 Irritable bowel syndrome, unspecified; M19.90 Unspecified osteoarthritis, unspecified site; R55 Syncope and collapse; Z79.899 Other long term (current) drug therapy; Z68.24 Body mass index [BMI] 24.0-24.9, adult; Z74.09 Other reduced mobility; S01.01XD Laceration without foreign body of scalp, subsequent encounter; W19.XXXD Unspecified fall, subsequent encounter; E07.9 Disorder of thyroid, unspecified; E11.9 Type 2 diabetes mellitus without complications
CPT/HCPCS: 36415; 97161; J0696; J1815